=== PATIENT | male | born 1975 | race Caucasian/White ===

== ENCOUNTER 2018-03-21 22:19 | Emergency (ER) | payer OTHER ==
--- NOTE | 2018-03-22 01:40 | EDM.PDOC ---
ED HPI GENERAL MEDICAL PROBLEM - General Chief Complaint: Skin Complaint Stated Complaint: EYE PROBLEMS Time Seen by Provider: 03/22/18 01:25 Source of Information: Reports: Patient History Limitations: Reports: No Limitations - History of Present Illness INITIAL COMMENTS - FREE TEXT/NARRATIVE: The patient states that he noticed a bump to the medial aspect of his right eyebrow on 03/17/2018. He thought it was likely an insect bite. He developed increased swelling to the area the following day and Thursday, 2017. Last night, the swelling extended around his right eye, and today, the swelling even extends around the left eye a bit. No recent fever. He states that it doesn't really hurt, but there is a slight ache. He does not have any globe pain, nor is there any pain to extraocular movements. The patient states that he applied hydrogen peroxide to the eyebrow yesterday, in an attempt to clean it. 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 He does not use antibacterial soap at home. The patient's PCP is Dr. Moya at the [place]. face Pain Score (Numeric/FACES): 4 - Related Data Allergies Allergy/AdvReac Type Severity Reaction Status Date / Time No Known Allergies Allergy Verified 03/21/18 22:53 Home Meds: Home Meds [place] Carbonate [[place] Carbonate ER] 450 mg PO BID 03/21/18 [History] Past Medical History Psychiatric History: Reports: Bipolar - Infectious Disease History Infectious Disease History: Reports: MRSA - Past Surgical History HEENT Surgical History: Reports: Tonsillectomy Social & Family History - Family History Family Medical History: Noncontributory - Tobacco Use Smoking Status *Q: Current Every Day Smoker Years of Tobacco use: 25 Packs/Tins Daily: 1 Packs/Tins Daily Comment: Down from 3 ppd - Caffeine Use Caffeine Use: Reports: Coffee - Alcohol Use Alcohol Use History: Yes Alcohol Use Frequency: Socially - Recreational Drug Use Recreational Drug Use: No - Living Situation & Occupation Living situation: Reports: , Alone 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 ED EXAM, SKIN/RASH Exam: See Below Exam Limited By: No Limitations General Appearance: Alert, WD/WN, No Apparent Distress Eye Exam: Bilateral Eye: EOMI, Normal Inspection (globe), PERRL Ears: Normal External Exam, Hearing Grossly Normal Nose: Normal Inspection Throat/Mouth: Normal Inspection, Normal Lips, Normal Voice, No Airway Compromise Head: Atraumatic, Facial Swelling (Lesion consistent with an insect bite to the medial aspect of the right eyebrow, with mild surrounding swelling and minimal erythema, that extends to surround the right eye, and, minimally, around the left eye. No significant dolor or calor. The patient reports no pain with globe movement.) Neck: Normal Inspection, Full Range of Motion. No: Lymphadenopathy (L), Lymphadenopathy (R) Course - Vital Signs Last Recorded V/S: Last Vital Signs Temp 36.4 C 03/21/18 22:51 Pulse 81 03/21/18 22:51 Resp 18 03/21/18 22:51 BP 166/119 H 03/21/18 22:51 Pulse Ox 98 03/21/18 22:51 - Orders/Labs/Meds Labs: Laboratory Tests 03/22/18 03/22/18 03/22/18 Range/Units 00:15 00:15 01:40 WBC 9.68 H (4.23-9.07) K/mm3 RBC 4.77 (4.63-6.08) M/mm3 Hgb 15.4 (13.7-17.5) gm/L Hct 44.0 (40.1-51.0) % MCV 92.2 (79.0-92.2) fl MCH 32.3 H (25.7-32.2) pg MCHC 35.0 (32.2-35.5) g/dl RDW Std Deviation 43.7 (35.1-43.9) fL Plt Count 197 (163-337) K/mm3 MPV 11.1 (9.4-12.3) fl Neut % (Auto) 58.7 (34.0-67.9) % Lymph % (Auto) 28.6 (21.8-53.1) % Clare % (Auto) 7.1 (5.3-12.2) % Eos % (Auto) 5.0 (0.8-7.0) Baso % (Auto) 0.4 (0.1-1.2) % Neut # (Auto) 5.68 H (1.78-5.38) K/mm3 Lymph # (Auto) 2.77 (1.32-3.57) K/mm3 Clare # (Auto) 0.69 (0.30-0.82) K/mm3 Eos # (Auto) 0.48 (0.04-0.54) K/mm3 Baso # (Auto) 0.04 (0.01-0.08) K/mm3 Manual Slide Review Not Reportable Sodium 143 (136-145) mEq/L Potassium 3.9 (3.5-5.1) mEq/L Chloride 107 (98-107) mEq/L Carbon Dioxide 26 (21-32) mEq/L Anion Gap 13.9 (5-15) BUN 21 H (7-18) mg/dL Creatinine 1.1 (0.7-1.3) mg/dL Est Cr Clr Drug Dosing 98.87 mL/min Estimated GFR (MDRD) > 60 (>60) mL/min BUN/Creatinine Ratio 19.1 H (14-18) Glucose 115 H (74-106) mg/dL Calcium 8.6 (8.5-10.1) mg/dL Total Bilirubin 0.6 (0.2-1.0) mg/dL AST 26 (15-37) U/L ALT 45 (16-63) U/L Alkaline Phosphatase 59 (46-116) U/L C-Reactive Protein 1.3 H* (<1.0) mg/dL Total Protein 6.9 (6.4-8.2) g/dl Albumin 3.6 (3.4-5.0) g/dl Globulin 3.3 gm/dL Albumin/Globulin Ratio 1.1 (1-2) MRSA (PCR) Negative Meds: Medications Discontinued Medications Generic Name Dose Route Start Last Admin Trade Name Freq PRN Reason Stop Dose Admin Cephalexin 500 mg 03/22/18 04:41 03/22/18 04:47 Keflex PO 03/22/18 04:42 500 mg ONETIME ONE Administration - Re-Assessments/Exams Free Text/Narrative Re-Assessment/Exam: 03/22/18 01:38 It appears that the patient was bitten by an insect earlier this week. He now has swelling about his right eye, and even extending towards his left eye. It is most likely that the patient is suffering from a local inflammatory reaction to the insect bite, the treatment of which would include an antihistamine and ice packs, with resolution usually within 10 to 12 days. It is possible, however , that there is a local infection. There is no suggestion of periorbital cellulitis, therefore there is no indication for a CT scan of the face, however , the patient has a history of MRSA 4 times in the past. I have ordered a MRSA screen. If positive, I will treat the patient with Bactrim. If negative, I will treat the patient with Keflex. 03/22/18 04:41 The MRSA screen is negative. I will start the patient on Keflex. 03/22/18 04:45 As the patient is heading out of town, he would like an [facility] prescription. Departure - Departure Time of Disposition: 04:41 Disposition: Home, Self-Care 01 Condition: Good Clinical Impression: Bug bite, Facial swelling - Discharge Information Instructions: Insect Bite, Adult, [id number] Referrals: Esther Moya DO [Primary Care Provider] - Forms: ED Department Discharge Additional Instructions: You were seen in the emergency room for swelling around your right eye and a bit around your left eye after sustaining in insect bite to your right eyebrow. You are MOST LIKELY suffering from a local inflammatory reaction to an insect bite. The treatment consists of taking an antihistamine, such as Claritin or Benadryl, plus applying ice packs several times a day, with expected resolution in about 10 to 12 days. It is possible that you also have an infection. A MRSA screen returned negative , therefore you have been started on the antibiotic Keflex. Take one tablet every 6 hours, as prescribed. Follow-up with your PCP, Dr. Leonela Moya, as needed. If any other problems, please do not hesitate to return to the ER.
[2018-03-22] MEDS ORDERED: Cephalexin 500 MG Cap PO ONE (04:41)
== END 2018-03-22 04:57 | disposition home or self-care (01) ==
LOC: JD.ED 22:19
DX: S00.261A Insect bite (nonvenomous) of right eyelid and periocular area, initial encounter (principal); R22.9 Localized swelling, mass and lump, unspecified; F17.210 Nicotine dependence, cigarettes, uncomplicated; W57.XXXA Bitten or stung by nonvenomous insect and other nonvenomous arthropods, initial encounter
CPT/HCPCS: 36415; 80053; 85025; 86140; 87641; 99283; A9270